=== PATIENT | female | born 1955 | race Caucasian/White ===

== ENCOUNTER → 2021-04-11 | Outpatient (CLI) | payer MEDICARE ==
[~2021-04-11] MED LIST: BISOPROLOL FUMAR5 M1 PO; CELEXA20 MG PO; LEVAQUIN 500 M500 M2 PO; LEVOTHYROXINE 0.1 MG; MAXALT MLT ODT10 M2; XANAX 0.5 MG0.5 MG PO; ZOFRAN ODT4 MG DISSOLVE
== END ==
LOC: M.RAD 13:51
PROVIDERS: ATTEND Internal Medicine
DX: Z12.31 Encounter for screening mammogram for malignant neoplasm of breast (principal)